=== PATIENT | female | born 1970 | race Caucasian/White ===

== ENCOUNTER 2023-07-22 08:56 | Emergency (ER) | payer OTHER ==
[~2023-07-22] VITALS: Ht 167.6 cm; Wt 177.8 kg
[~2023-07-22 08:56] MED LIST: ANTI-DIARRHEA2 MG PO; CLONIDINE HCL0.1 MG PO; HYDROXYZINE HCL50 MG PO; MACROBID 100 M100 MG PO; MOTRIN400 MG PO; MULTIVITAMINS1 EAC7 PO; SUBOXONE 2 MG-1 EACH SL; TYLENOL325 MG PO; ULTRAM50 MG PO
--- OUTSIDE RECORDS SUMMARY | 2023-07-22 08:57 | XMS ---
PreManage Notification: CINDY FERRO Security Manager Regional Sales Events No recent Security Events currently on file CRITERIA MET - 6 ED Visits in 6 Months - [facility] - 2 Visits in 30 Days CARE PROVIDERS PRISCILLA ESCALERA Desktop Support Engineer/Remotely Piloted Vehicle Controller 06/10/2022-Marquez CESPEDESHY PHONE: [phone] -Godwin DMD Dentist: Tarper Current PHONE: [phone] NEELA ARDON Nurse Practitioner: Family Current PHONE: [phone] KEL SANCHEZ Physician Animal Trainer Supervisor: Medical Current PHONE: [phone] VIK LIN [facility] Current PHONE: Unknown Kacey has no Care Guidelines for this patient. Rob VISIT COUNT (12 MO.) 6 Victor Hugo Song ([place] [facility]) 1 THAI Reed TOTAL 7 NOTE: Visits indicate total known visits. ED/UCC VISIT TRACKING (12 MO.) 07/22/2023 08:57 THAI [facility] [place] TYPE: Emergency COMPLAINT: - L LEG PAIN 07/13/2023 15:19 Victor Hugo [facility] ([facility]) TYPE: Emergency DIAGNOSES: - Other injury of unspecified body region, initial encounter - Followup Medical Problem - Wound care 06/08/2023 14:04 Victor Hugo [facility] ([facility]) TYPE: Emergency DIAGNOSES: - Cellulitis of left lower limb - Non-pressure chronic ulcer of skin of other sites limited to breakdown of skin - wound check - Wound Infection (Complicated) 05/05/2023 14:57 Victor Hugo [facility] ([facility]) TYPE: Emergency DIAGNOSES: - Lymphedema, not elsewhere classified - Unspecified open wound, left lower leg, sequela - Followup Medical Problem - Poss. Cellulitis - Wound Check 04/30/2023 14:54 Victor Hugo [facility] ([facility]) TYPE: Emergency DIAGNOSES: - Encounter for fitting and adjustment of urinary device - catheter removal - Urinary Catheter Problem 04/26/2023 18:03 Victor Hugo [facility] ([facility]) TYPE: Emergency DIAGNOSES: - Localized edema - Catheter Issues - Leg Swelling - Shortness of Breath 09/10/2022 14:19 Victor Hugo [facility] ([facility]) TYPE: Emergency DIAGNOSES: - Cerebral aneurysm, nonruptured - Chronic sinusitis, unspecified - skin complaint - Skin Problem INPATIENT VISIT TRACKING (12 MO.) 03/18/2023 11:00 [facility] ([facility] TYPE: Surgery COMPLAINT: - Unruptured cerebral aneurysm (Primary Dx) DIAGNOSES: - Cerebral aneurysm, nonruptured [email or web address]
[2023-07-22 09:31] LABS: BASOPHILS 0.4 % (0-2); EOSINOPHILS 3.7 % (0-6); HEMATOCRIT 39.3 % (35.0-50.0); HEMOGLOBIN 12.8 g/dL (12.0-18.0); LYMPHOCYTES 9.5 % (24-44); MCH 25.9 (27-36); MCHC 32.5 g/dl (30-36); MCV 79.6 fl (81-99); MONOCYTES 8.9 % (0-12); NEUTROPHILS 77.5 % (39-80); PLATELET COUNT 241 K/uL (140-440); RBC 4.93 M/ul (4.3-5.7); RDW 16.1 (10.5-15.0)
[2023-07-22 09:48] LABS: ALBUMIN 2.6 g/dL (3.4-5.0); ALBUMIN/GLOBULIN RATIO 0.5 (1.1-2.4); ANION GAP 10.9 (7-21); BILIRUBIN, TOTAL 0.7 ng/dL (0.2-1.0); BUN/CREATININE RATIO 17.82 (6.0-28.6); CALCIUM 8.6 mg/dL (8.5-10.1); CREATININE, SERUM 1.29 mg/dL (0.55-1.02); POTASSIUM 3.9 mmol/L (3.5-5.1); PROTEIN, TOTAL 7.8 g/dL (6.4-8.2)
[2023-07-22 13:21] VITALS: BP 107/51
== END 2023-07-22 13:00 | disposition home or self-care (01) ==
LOC: ED 08:56
PROVIDERS: Emergency Medicine
DX: L30.9 Dermatitis, unspecified (principal); F17.200 Nicotine dependence, unspecified, uncomplicated; E11.9 Type 2 diabetes mellitus without complications; Q61.5 Medullary cystic kidney; Z79.899 Other long term (current) drug therapy; Z88.0 Allergy status to penicillin; Z88.1 Allergy status to other antibiotic agents; Z91.030 Bee allergy status
CPT/HCPCS: 36415; 80053; 85025; 99283; Q0163

== ENCOUNTER 2023-08-16 19:49 | Emergency (ER) | payer OTHER ==
[~2023-08-16] VITALS: Ht 167.6 cm; Wt 177.8 kg
--- OUTSIDE RECORDS SUMMARY | 2023-08-16 19:52 | XMS ---
PreManage Notification: CINDY EFRRO Security Pick Up Worker Events No recent Security Events currently on file CRITERIA MET - 6 ED Visits in [address] [facility] - 2 Visits in 30 Days CARE PROVIDERS NANY CARDENAS National Business Director/Poultry Offal Worker 07/27/2023-Current PHONE: [phone] PRISCILLA ESCALERA National Business Director/Poultry Offal Worker 06/10/2022-Marquez YU PHONE: [phone] -Godwin DMD Dentist: Healthcare Network Consultant Current PHONE: [phone] NEELA ARDON Nurse Practitioner: Family Current PHONE: [phone] KEL SANCHEZ Physician Shade Classifier: Medical Current PHONE: [phone] PARMJIT BUCK/Katy: [facility] Current [facility] MEDICAL PHONE: [phone] VIK LIN [facility] Current PHONE: Unknown Kacey has no Care Guidelines for this patient. Rob VISIT COUNT (12 MO.) 6 Parmjit [facility]) 2 THAI Reed TOTAL 8 NOTE: Visits indicate total known visits. ED/UCC VISIT TRACKING (12 MO.) 08/16/2023 19:49 THAI [facility] [place] TYPE: Emergency 07/22/2023 08:57 THAI [facility] [place] TYPE: Emergency COMPLAINT: - L LEG PAIN DIAGNOSES: - Allergy status to other antibiotic agents - Allergy status to penicillin - Bee allergy status - Dermatitis, unspecified - Medullary cystic kidney - Nicotine dependence, unspecified, uncomplicated - Other alf (current) drug therapy - Type 2 diabetes mellitus without complications - Unspecified open wound, left lower leg, initial encounter 07/13/2023 15:19 Parmjit [facility] ([employer]) TYPE: Emergency DIAGNOSES: - Other injury of unspecified body region, initial encounter - Followup Medical Problem - Wound care 06/08/2023 14:04 Parmjit [facility] ([employer]) TYPE: Emergency DIAGNOSES: - Cellulitis of left lower limb - Non-pressure chronic ulcer of skin of other sites limited to breakdown of skin - wound check - Wound Infection (Complicated) 05/05/2023 14:57 Parmjit [facility] ([employer]) TYPE: Emergency DIAGNOSES: - Lymphedema, not elsewhere classified - Unspecified open wound, left lower leg, sequela - Followup Medical Problem - Poss. Cellulitis - Wound Check 04/30/2023 14:54 Parmjit Njmatheus ErickBhumi [facility] ([employer]) TYPE: Emergency DIAGNOSES: - Encounter for fitting and adjustment of urinary device - catheter removal - Urinary Catheter Problem 04/26/2023 18:03 Parmjit Njmatheus ErickBhumi [facility] ([employer]) TYPE: Emergency DIAGNOSES: - Localized edema - Catheter Issues - Leg Swelling - Shortness of Breath 09/10/2022 14:19 Parmjit SuarezBhumi [facility] ([employer]) TYPE: Emergency DIAGNOSES: - Cerebral aneurysm, nonruptured - Chronic sinusitis, unspecified - skin complaint - Skin Problem INPATIENT VISIT TRACKING (12 MO.) 03/18/2023 11:00 [facility] ([facility]D Exch[facility] TYPE: Surgery COMPLAINT: - Unruptured cerebral aneurysm (Primary Dx) DIAGNOSES: - Cerebral aneurysm, nonruptured [email or web address]
[2023-08-16 20:14] LABS: BASOPHILS 0.7 % (0-2); HEMATOCRIT 42.4 % (35.0-50.0); HEMOGLOBIN 13.7 g/dL (12.0-18.0); LYMPHOCYTES 17.8 % (24-44); MCH 25.8 (27-36); MCHC 32.3 g/dl (30-36); MCV 79.9 fl (81-99); MONOCYTES 10.2 % (0-12); NEUTROPHILS 66.3 % (39-80); PLATELET COUNT 216 K/uL (140-440); RBC 5.31 M/ul (4.3-5.7); RDW 16.4 (10.5-15.0)
[2023-08-16 20:26] LABS: INR 4.08 (0.80-1.30); PROTIME 38.5 Sec (11.2-14.2)
[2023-08-16] MEDS ORDERED: JANTOVEN7.5 MG PO (20:44)
[2023-08-16 21:36] VITALS: BP 115/76
== END 2023-08-16 21:35 | disposition home or self-care (01) ==
LOC: ED 19:49
PROVIDERS: Family Medicine
DX: R79.1 Abnormal coagulation profile (principal); Q61.5 Medullary cystic kidney; E11.9 Type 2 diabetes mellitus without complications; F17.200 Nicotine dependence, unspecified, uncomplicated; Z91.030 Bee allergy status; Z88.0 Allergy status to penicillin; Z88.1 Allergy status to other antibiotic agents; Z79.899 Other long term (current) drug therapy
CPT/HCPCS: 36415; 85025; 85610; 99283